=== PATIENT | male | born 1960 | race Caucasian/White ===

== ENCOUNTER 2020-07-27 11:50 | Observation (INO) ==
[2020-07-27] MEDS ORDERED: ASPIRIN 325 MG TABLET PO STA (12:08)
[2020-07-27 12:17] LABS: Basophils # 0.1 10*3/uL (0.0-0.2); Basophils % 0.5 % (0.0-0.8); Eosinophils # 0.2 10*3/uL (0.0-0.87); Eosinophils % 1.5 % (0.00-10.9); Hematocrit 47.4 VOL% (42.0-52.0); Immature Granulocytes % 0.3 %; Immature Granulocytes Absolute 0.03 #; Mean Corpuscular HGB Conc 33.8 GM/DL (32-36); Mean Corpuscular Volume 87.8 FL (87-102); Mean Platelet Volume 9.6 FL (9.6-12.0); Monocytes % 10.9 % (1.7-12.7); Neutrophils % 55.8 % (38.7-73.9); Platelet Count 190 T/CUMM (130-400); Red Cell Distribution Width 12.6 % (9.3-17.3); White Blood Count 9.7 T/CUMM (4-12)
[2020-07-27 12:32] LABS: PT Patient Result 11.1 SECS (9.8-11.9); Partial Thromboplastin Time 27.3 SECS (23.9-33.8)
[2020-07-27 12:39] LABS: Albumin 4.2 G/DL (3.4-5.0); Bilirubin,Total 1.2 MG/DL (0.2-1.0); Calcium 9.4 MG/DL (8.5-10.1); Osmolality,Calculated 279.3 MOS/KG (273-304); Total Protein 7.6 G/DL (6.4-8.3)
[2020-07-27] MEDS ORDERED: MAGNESIUM SULF RIDER 2 GM in PREMIX 1 EACH IV PRN (13:56)
[2020-07-27] MEDS ORDERED: ONDANSETRON 4 MG/2 ML VIAL IV PRN (13:56)
[2020-07-27] MEDS ORDERED: MAGNESIUM SULF RIDER 4 GM in PREMIX 1 EACH IV PRN (13:56)
[2020-07-27] MEDS ORDERED: NITROGLYCERIN SL 0.4 MG TABLET SL PRN (14:01)
[2020-07-27] MEDS: ENOXAPARIN 100 MG/ML SYRINGE SUBCUT SCH (16:05)
[2020-07-27] MEDS: SODIUM CHLORIDE 0.45% 1,000 ML IV SCH (16:56)
[2020-07-27] MEDS ORDERED: ATORVASTATIN 20 MG TABLET PO SCH (21:00)
[2020-07-27] MEDS: MORPHINE 4 MG/1 ML VIAL IV PRN (21:03)
[2020-07-27] MEDS: HYOSCYAMINE SULFATE 0.375 MG PO SCH (21:04)
[2020-07-28] MEDS: MORPHINE 4 MG/1 ML VIAL IV PRN (00:06)
[2020-07-28] MEDS: SODIUM CHLORIDE 0.45% 1,000 ML IV SCH ×2 (00:54→09:18)
[2020-07-28] MEDS: ENOXAPARIN 100 MG/ML SYRINGE SUBCUT SCH (03:34)
[2020-07-28 04:29] LABS: Risk Ratio 3.08; VLDL CHOLESTEROL 17.4 MG/DL
[2020-07-28 08:07] VITALS: BP 119/79
[2020-07-28] MEDS ORDERED: ASCORBIC ACID 500 MG TABLET PO SCH (09:00)
[2020-07-28] MEDS ORDERED: DOCUSATE SODIUM 100 MG CAPSULE PO SCH (09:00)
[2020-07-28] MEDS ORDERED: POLYCARBOPHIL 625 MG TABLET PO SCH (09:00)
[2020-07-28] MEDS ORDERED: ASPIRIN 325 MG TABLET PO SCH (09:00)
[2020-07-28] MEDS ORDERED: PANTOPRAZOLE 40 MG TABLET PO SCH (09:00)
[2020-07-28] MEDS ORDERED: MULTIVITAMIN (CENTRUM) TABLET PO SCH (09:00)
[2020-07-28] MEDS ORDERED: METOPROLOL SUCCINATE XL 50 MG TABLET PO SCH (09:00)
[2020-07-28] MEDS: HYOSCYAMINE SULFATE 0.375 MG PO SCH (09:17)
== END 2020-07-28 10:46 | disposition home or self-care (01) ==
LOC: N.EDINP 11:50 → N.ED 11:50 → N.TELES 15:41
PROVIDERS: ADMIT Internal Medicine Cardiovascular Disease; ATTEND Internal Medicine Cardiovascular Disease

== ENCOUNTER 2021-10-16 14:59 | Observation (INO) ==
[2021-10-16 18:16] LABS: Basophils % 0.4 % (0.0-0.8); Eosinophils # 0.1 10*3/uL (0.0-0.87); Eosinophils % 1.4 % (0.00-10.9); Hematocrit 47.4 VOL% (42.0-52.0); Hemoglobin 15.7 GM/DL (14.0-18.0); Immature Granulocytes % 0.2 %; Immature Granulocytes Absolute 0.02 #; Lymphocytes # 2.6 10*3/uL (1.4-4.0); Lymphocytes % 27.4 % (21.2-54.2); Mean Corpuscular HGB Conc 33.1 GM/DL (32-36); Mean Corpuscular Volume 87.3 FL (87-102); Mean Platelet Volume 10.4 FL (9.6-12.0); Monocytes % 10.9 % (1.7-12.7); Neutrophils % 59.7 % (38.7-73.9); Platelet Count 211 T/CUMM (130-400); Red Blood Count 5.43 MC/CUMM (3.8-5.5); Red Cell Distribution Width 12.4 % (9.3-17.3); White Blood Count 9.6 T/CUMM (4-12)
[2021-10-16 18:30] LABS: Calcium 9.3 MG/DL (8.5-10.1); Osmolality,Calculated 277.7 MOS/KG (273-304); Potassium 3.7 MMOL/L (3.5-5.1)
[2021-10-16] MEDS ORDERED: diphenhydrAMINE CAP 25 MG CAPSULE PO PRN (19:53)
[2021-10-16] MEDS ORDERED: ACETAMINOPHEN 325 MG TABLET PO PRN (19:53)
[2021-10-16] MEDS ORDERED: NICOTINE 21 MG/24 HR PATCH TRANSDERM PRN (19:53)
[2021-10-16] MEDS ORDERED: GLUCAGON 1 MG VIAL IM PRN (19:53)
[2021-10-16] MEDS ORDERED: ZALEPLON 5 MG CAPSULE PO PRN (19:53)
[2021-10-16] MEDS ORDERED: ONDANSETRON 4 MG/2 ML VIAL IV PRN (19:53)
[2021-10-16] MEDS ORDERED: MORPHINE 2 MG/1 ML SYRINGE IV PRN (19:53)
[2021-10-16] MEDS ORDERED: BISACODYL 5 MG TABLET PO PRN (19:53)
[2021-10-16] MEDS ORDERED: guaiFENesin/DM ER 600-30 MG TABLET PO PRN (19:53)
[2021-10-16] MEDS ORDERED: hydrALAZINE 20 MG/1 ML VIAL IV PRN (19:53)
[2021-10-16] MEDS ORDERED: DEXTROSE 50% 25 GM/50 ML SYRINGE IV PRN (19:57)
[2021-10-16] MEDS ORDERED: ENOXAPARIN 40 MG/0.4 ML SYRINGE SUBCUT SCH (20:00)
[2021-10-16] MEDS ORDERED: SODIUM CHLORIDE 0.9% 1,000 ML IV SCH (20:00)
[2021-10-16 20:18] LABS: Free T4 (Free Thyroxine) 1.06 NG/DL (0.76-1.46)
[2021-10-16 21:19] LABS: Barbiturates Screen,Urine Negative (Negative); Benzodiazepines Screen,Urine Negative (Negative); Cannabinoid Screen,Urine Negative (Negative); Opiate Screen,Urine Negative (Negative); Phencyclidine Screen,Urine Negative (Negative)
[2021-10-17 05:38] LABS: Basophils % 0.1 % (0.0-0.8); Eosinophils # 0.1 10*3/uL (0.0-0.87); Hematocrit 44.1 VOL% (42.0-52.0); Hemoglobin 14.8 GM/DL (14.0-18.0); Immature Granulocytes % 0.1 %; Immature Granulocytes Absolute 0.01 #; Lymphocytes # 2.2 10*3/uL (1.4-4.0); Lymphocytes % 26.4 % (21.2-54.2); Mean Corpuscular HGB Conc 33.6 GM/DL (32-36); Mean Corpuscular Volume 88.7 FL (87-102); Mean Platelet Volume 9.9 FL (9.6-12.0); Monocytes % 11.6 % (1.7-12.7); Neutrophils % 60.8 % (38.7-73.9); Platelet Count 185 T/CUMM (130-400); Red Blood Count 4.97 MC/CUMM (3.8-5.5); Red Cell Distribution Width 12.5 % (9.3-17.3); White Blood Count 8.2 T/CUMM (4-12)
[2021-10-17 05:53] LABS: Calcium 9.1 MG/DL (8.5-10.1); Osmolality,Calculated 275.7 MOS/KG (273-304); Potassium 4.2 MMOL/L (3.5-5.1)
[2021-10-17 08:55] VITALS: BP 119/75
[2021-10-17] MEDS ORDERED: PANTOPRAZOLE 40 MG TABLET PO SCH (09:00)
[2021-10-17] MEDS ORDERED: METOPROLOL SUCCINATE XL 25 MG TABLET PO SCH ×2 (09:00→21:00)
[2021-10-17] MEDS ORDERED: METOPROLOL SUCCINATE XL 50 MG TABLET PO SCH (09:00)
[2021-10-17] MEDS ORDERED: POLYCARBOPHIL 625 MG TABLET PO SCH (09:00)
[2021-10-17] MEDS ORDERED: ASPIRIN EC 81 MG TABLET PO SCH (21:00)
[2021-10-17] MEDS ORDERED: ATORVASTATIN 20 MG TABLET PO SCH (21:00)
== END 2021-10-17 12:02 | disposition home or self-care (01) ==
LOC: N.EDINP 14:59 → N.ED 14:59 → N.EDINP 22:02 → N.TELEN 22:22
PROVIDERS: ADMIT Internal Medicine; ATTEND Internal Medicine